=== PATIENT | female | born 1960 | race Caucasian/White ===

== ENCOUNTER → 2016-12-21 | Outpatient (CLI) | payer BC ==
[~2016-12-21] MED LIST: IBUP-1050 PO; OXYC-57 PO; SYMIN/8045 INH
--- NOTE | 2016-12-21 11:46 | DIAGNOSTIC IMAGING REPORT ---
ULTRASOUND ABDOMEN COMPLETE CLINICAL HISTORY: Generalized abdominal pain. COMPARISON STUDY: Abdominal CT dated 05/14/2015. TECHNIQUE: Real-time, grayscale, and color flow sonography of the abdomen was performed. Images are reviewed in the transverse and longitudinal planes. FINDINGS: Liver: The liver is normal in size and echotexture. There is no intrahepatic biliary ductal dilatation. The main portal vein is patent. Gallbladder: The gallbladder is normal in appearance. No gallstones are identified. There is no gallbladder wall thickening or pericholecystic fluid. A sonographic Mehta's sign is reportedly absent. The common bile duct measures up to 0.4 cm in diameter. Pancreas: Visualized portions of the pancreatic head and body are normal in appearance. Spleen: The spleen is normal in size and echotexture, measuring 8.5 cm in length. Small calcified splenic granulomas are noted. Kidneys: The kidneys are normal in size and echotexture. There is no hydronephrosis. The right kidney measures 11.4 cm in length and the left kidney measures 11.6 cm in length. No shadowing calculi are identified. A subcentimeter cyst is noted on the right. Abdominal vasculature: Visualized portions of the abdominal aorta and IVC are normal as visualized. Ascites: None. IMPRESSION: No acute sonographic abnormality is identified. Electronically signed by: Niles Holliday M.D. 12/21/2016 11:45 AM Dictated Date/Time: 12/21/2016 11:43 AM
--- NOTE | 2016-12-21 12:12 | DIAGNOSTIC IMAGING REPORT ---
EXAMINATION: PELVIC ULTRASOUND CLINICAL HISTORY: ABDOMINAL PAIN/ QUESTIONABLE DIVERTICULITIS PAIN. NAUSEA. COMPARISON STUDY: None FINDINGS: The uterus measured 6.9 cm maximum dimension. The endometrial stripe measured 3 mm. The right ovary measured 2.1 cm with normal vascular flow. The left ovary measured 1.8 cm with normal vascular flow. There is no ultrasonographic evidence of ovarian torsion. It should be noted that ovarian torsion can be present with normal Doppler ultrasonographic findings. There was no evidence of pathologic free pelvic fluid. IMPRESSION: Normal study Electronically signed by: Hugh Gleason M.D. 12/21/2016 12:11 PM Dictated Date/Time: 12/21/2016 12:11 PM
== END | disposition home or self-care (01) ==
LOC: C.ULTR 10:13
DX: R10.9 Unspecified abdominal pain (principal)

== ENCOUNTER → 2016-12-29 | Outpatient (CLI) | payer BC ==
[~2016-12-29] MED LIST changes: +OPTIRAY 320 IV PRN
--- NOTE | 2016-12-29 13:40 | DIAGNOSTIC IMAGING REPORT ---
CT SCAN OF THE ABDOMEN AND PELVIS WITH IV CONTRAST CLINICAL HISTORY: Right lower quadrant abdominal pain. COMPARISON STUDY: Abdominal CT dated 05/14/2015. TECHNIQUE: Following the IV administration of 93 cc of Optiray 320, CT scan of the abdomen and pelvis is performed from the lung bases to the proximal femora. Images are reviewed in the axial, sagittal, and coronal planes. IV contrast was administered without complication. Automated dose control exposure was utilized. CT DOSE: 513.93 mGycm FINDINGS: Lung bases: The heart is normal in size and without pericardial effusion. The lung bases are clear noting minimal dependent atelectasis. Liver: The contrast-enhanced liver is normal in size, contour, and attenuation. There is no intrahepatic biliary ductal dilatation. The hepatic veins and portal veins are patent. Gallbladder: Unremarkable. Spleen: Normal in size and attenuation. There are scattered calcified splenic granulomas. Pancreas: Unremarkable. Adrenal glands: Unremarkable. Kidneys: The contrast enhanced kidneys are normal in size. There is mild bilateral hydroureteronephrosis, right slightly greater than left. No calculus or obstructing lesion is clearly identified. The kidneys enhance symmetrically. There are scattered subcentimeter cortical hypodensities. These likely represent cysts but are too small for definitive characterization. Abdominal vasculature: The abdominal aorta is normal in course and caliber noting scattered foci of atherosclerotic calcification. Bowel: The small bowel and colon are normal in course and caliber. Colonic fecal retention is observed. The appendix is well-visualized and normal. Peritoneum: There is no intraperitoneal free air or abdominal ascites. Lymphadenopathy: None. Pelvic viscera: The bladder, uterus, and adnexa are normal as visualized. Small ovarian follicles are incidentally noted. Skeletal structures: No lytic or blastic lesions are seen. IMPRESSION: 1. There is mild bilateral hydronephrosis, right greater than left. No obstructing calculus or lesion is seen and this is of indeterminant significance. This new from 05/14/2015. Consider follow-up with urology. 2. No acute infectious or inflammatory findings are seen in the abdomen or pelvis. 3. Additional changes as above. Electronically signed by: Niles Holliday M.D. 12/29/2016 1:39 PM Dictated Date/Time: 12/29/2016 1:32 PM
== END | disposition home or self-care (01) ==
LOC: C.CTS 12:20
DX: R10.9 Unspecified abdominal pain (principal); K57.90 Diverticulosis of intestine, part unspecified, without perforation or abscess without bleeding

== ENCOUNTER → 2017-06-23 | Outpatient (CLI) | payer BC ==
[~2017-06-23] MED LIST changes: -OPTIRAY 320 IV PRN
[2017-06-23 17:08] LABS: BASO % 0.3 %; BASO ABS # 0.02 K/uL (0-0.2); COMPLETE YES; HEMATOCRIT 40.6 % (37-47); IG% 0.3 %; LYMPH ABS # 2.49 K/uL (1.2-3.4); MEAN CELL VOLUME 89.4 fL (80-100); MEAN CORPUSCULAR HGB CONC 33.5 g/dl (32-36); MEAN PLATELET VOLUME 8.6 fL (7.4-10.4); MONO % 6.6 %; NEUT % 56.8 %; PLATELET COUNT 308 K/uL (130-400); RED BLOOD COUNT 4.54 M/uL (4.2-5.4); WHITE BLOOD COUNT 7.12 K/uL (4.8-10.8)
[2017-06-23 17:40] LABS: BLOOD UREA NITROGEN 20 mg/dl (7-18); BUN/CREATININE RATIO 29.8 (10-20); CALCIUM 9.1 mg/dl (8.5-10.1); CARBON DIOXIDE 30 mmol/L (21-32); CHLORIDE 105 mmol/L (98-107); CREATININE 0.66 mg/dl (0.60-1.20); GLUCOSE 126 mg/dl (70-99); POTASSIUM 4.1 mmol/L (3.5-5.1); SODIUM 140 mmol/L (136-145)
== END | disposition home or self-care (01) ==
LOC: C.CPL 16:11
PROVIDERS: ATTEND Orthopaedic Surgery
DX: M75.02 Adhesive capsulitis of left shoulder (principal)

== ENCOUNTER → 2017-07-08 | Day surgery (SDC) | payer BC ==
[2017-06-28 11:05] VITALS: Ht 170.2 cm; Wt 68.2 kg
[~2017-07-08] VITALS: Ht 170.2 cm; Wt 68.2 kg
[~2017-07-08] MED LIST changes: +ATROPINE SULFATE 0.1 MG/ML 5ML SYR IV PRN; +BUPIVACAINE/EPINEPHRINE 0.25% 1:200,000 30 ML VIAL ONE; +CEFAZOLIN 2000 MG/60 ML D5W IV SCH; +DEXAMETHASONE SOD INJ 4 MG/ML VIAL ONE; +EpHEDrine SULFATE INJ 50 MG/ML AMP IV PRN; +EpINEphrine INJ 1MG/ML AMP 1 MG/ML AMP ONE; +FENTANYL CITRATE INJ 50 MCG/1 ML 2 ML VIAL IV PRN; +FENTANYL CITRATE INJ 50 MCG/1 ML 2 ML VIAL ONE; +HYDROmorphone INJ 1 MG/ML SYR IV PRN; +LACTATED RINGER'S 1000ML 1,000 ML IV SCH; +LIDOCAINE HCL 1% MPF 2 ML VIAL ONE; +LIDOCAINE HCL 2% 2 ML VIAL (20MG/ML) ONE; +METHYLPREDNISOLONE ACETATE 80 MG/ML VIAL ONE; +MIDAZOLAM HCL 1 MG/ML 2ML VIAL ONE; +ONDANSETRON INJ 2 MG/ML 2 ML VIAL IV PRN; +ONDANSETRON INJ 2 MG/ML 2 ML VIAL ONE; +OXYCODONE/ACETAMINOPHEN 5-325 TAB PO PRN; +PROMETHAZINE HCL INJ 12.5 MG in SODIUM CHLORIDE 0.9% 50ML 50 ML IV PRN; +PROPOFOL IV EMULSION 10 MG/ML 20 ML VIAL IV ONE; +ROPIVACAINE 0.5% 5 MG/ML 30 ML VIAL ONE; +SODIUM CHLORIDE 0.9% 1000ML 1,000 ML IV SCH
--- NOTE | 2017-07-08 08:15 | History & Physical Bridge - SC ---
H&P Re-Evaluation Bridge Note: I have examined the patient, reviewed the History & Physical and in the interval since the performance of the History & Physical I have noted the following changes of clinical significance: No changes noted
--- NOTE | 2017-07-08 11:01 | Discharge Instructions-SurgCtr ---
Discharge Instructions Date of Service Jul 08, 2017. Visit Reason for Visit: Left Shoulder Adhesive Capsulitis Discharge Discharge Diagnosis / Problem: SAME ABOVE Discharge Goals Goal(s): Decrease discomfort, Improve function Medications Stopped Medications Name(s): Advil last taken over a week ago Restart Stopped Medication(s): SAME ABOVE Activity Recommendations Activity Limitations: as noted below Lifting Limitations: gradually increase as tolerated Exercise/Sports Limitations: gradually increase as tolerated Shower/Bathe: tomorrow Anesthesia . Post Anesthesia Instructions: If you have had General Anesthesia or IV Sedation: * Do not drive today. * Resume driving when surgeon permits. * Do not make important decisions or sign legal documents today. * Call surgeon for: 1. Temperature elevations greater than 101 degrees F. 2. Uncontrollable pain. 3. Excessive bleeding. 4. Persistent nausea and vomiting. 5. Medication intolerance (nausea, vomiting or rash). * For nausea and vomiting use only clear liquids such as: tea, soda, bouillon until nausea subsides, then gradually increase diet as tolerated. * If you have any concerns or questions, call your surgeon's office. If physician is unavailable and it is an emergency, call 911 or go to the nearest emergency room. . Instructions / Follow-Up Instructions / Follow-Up MEDICATIONS: * Resume previous medications unless instructed otherwise by your surgeon. * Always take pain medication on a full stomach or with food to avoid upset stomach. * Do not drink alcohol or drive while taking narcotics. * Ibuprofen or Tylenol may be taken if narcotic not needed. SPECIAL CARE INSTRUCTIONS: __ None _X_ Keep extremity elevated and iced x 48 hours; apply ice 20-30 minutes 8-10 times/day. May remove at night. _X_ Sling (REMOVE AFTER 24 HOURS) _X_24 hrs/day __ Remove at night __ Shoulder Immobilizer __ 24 hrs/day __ Remove at night _X_ Dressing __ Maintain until seen in office, may shower with plastic over site _X_ Remove dressings in 24-48 hours and then may shower _X_ Cover incisions with band-aids after showering __ Do not remove steri-strips Call physician if chills or temperature rises above 102 degrees or pain unrelieved by prescribed pain medications at . . Diet Recommendations Home Diet: no limitations Fluid Restriction: None Procedures Procedures Performed: Left Shoulder Arthroscopic Capsular Release Pending Studies Studies pending at discharge: no Work Instructions Return To Work: 3 days (WHEN PAIN IS CONTROLLED ) Medical Emergencies . Who to Call and When: Medical Emergencies: If at any time you feel your situation is an emergency, please call 911 immediately. . Non-Emergent Contact Non-Emergency issues call your: Primary Care Provider Call Non-Emergent contact if: you have a fever, temperature is above 101.5 . . "Provider Documentation" section prepared by Winston Vasquez. .
--- NOTE | 2017-07-08 11:05 | [facility] Post Operative Brief Note ---
Immediate Operative Summary Operative Date Jul 08, 2017. Pre-Operative Diagnosis Left Shoulder Adhesive Capsulitis Post-Operative Diagnosis Same Procedure(s) Performed Left Shoulder Arthroscopic Capsular Release Surgeon Dr Almeida Fur Polisher Surgeon(s) Arian Vasquez PA-C Estimated Blood Loss 0ml Findings as above Specimens None Complication(s) None Disposition Recovery Room / PACU
--- NOTE | 2017-07-08 11:26 | OPERATIVE REPORT ---
DATE OF OPERATION: 07/08/2017 PREOPERATIVE DIAGNOSIS: Adhesive capsulitis of the left shoulder. POSTOPERATIVE DIAGNOSIS: Same. PROCEDURES: Left shoulder diagnostic arthroscopy with extensive debridement, lysis of adhesions and manipulation under anesthesia. SURGEON: Dr. Alejandro Almeida. ELECTRICAL AND INSTRUMENT TECHNICIAN: Arian Vasuqez PA-C, whose assistance was necessary for positioning the arm and helping with instrumentation. ANESTHESIA: General with a left interscalene nerve block. COMPLICATIONS: None. CONDITION: Stable to PACU. INDICATIONS: Suzy is a pleasant 56-year-old female who presented to my office with increasing pain and tightness of her left shoulder. Clinical examination was diagnostic for adhesive capsulitis of the left shoulder. After failing conservative treatment, she elected to undergo a capsular release. DESCRIPTION OF PROCEDURE: On 07/08/2017, she arrived at [facility] for the above procedure. She was seen in the preoperative holding area and the operative extremity was identified and signed. She was given a preoperative antibiotic and a left interscalene nerve block. She was taken back to the operating room, laid on the table in supine position and put under general anesthesia. She was put into the beachchair position. The left shoulder was prepped and draped in sterile fashion. Time-out was done and the patient and operative extremity was properly identified. On preoperative physical examination, she had about 45 degrees of abduction and 20 degrees of external rotation. A gentle manipulation was done into her anesthesia to help facilitate insertion of the arthroscope. The scope was then placed in the posterior portal. Diagnostic arthroscopy showed no cartilage damage to the humeral head or the glenoid. There was a little fraying of the anterior labrum. The biceps tendon was intact. The supraspinatus, infraspinatus and teres minor were all checked and intact. There was a lot of redness and inflammation of the rotator interval, the middle and inferior glenohumeral ligaments. An anterior portal was made. A shaver was used to start an extensive debridement of the intraarticular capsule. Time was spent cleaning up any frayed tissue from the earlier manipulation. An ablator was then used to do a lysis of adhesions and completely open up the rotator interval from underneath the coracoid to the biceps manish mechanism. Time was also spent releasing the middle and inferior glenohumeral ligaments. I was able to release all the way down to the 6 o'clock position. Care was taken not to disrupt the subscapularis or the axillary nerve. A shaver was then used to continue debridement and remove any soft tissue remnants. An ablator was once again used to control hemostasis. Once I was happy with the overall release, arthroscopic instruments were removed. An additional manipulation under anesthesia was done. I was able to get full range of motion of the shoulder. The scope was placed back into the glenohumeral joint. Hemostasis was controlled and a spinal needle was placed. The shoulder was then injected with 80 mg of Depo-Medrol and 5 mL of Marcaine. Arthroscopic instruments were removed. Portal sites were closed with 3-0 nylon. She was then placed in a soft dressing and a regular arm sling. She was then extubated, transferred to a [facility] and taken to the postanesthesia care unit in stable condition. She tolerated the procedure well. I attest to the content of the Intraoperative Record and any orders documented therein. Any exception s are noted below.
[2017-07-08 12:07] VITALS: BP 116/74; PULSE 80; O2SAT 94
--- NOTE | 2017-07-08 12:25 | Anesthesiology Progress Note ---
Anesthesia Post Op Note Date & Time Jul 08, 2017 at 12:25 Vital Signs Pain Intensity: 0 Vital Signs Past 12 Hours Date Time Temp Pulse Resp B/P (MAP) Pulse Ox O2 Delivery O2 Flow Rate FiO2 07/08/17 12:07 80 16 116/74 (88) 94 Room Air 07/08/17 11:46 36.6 63 16 118/74 (89) 99 Room Air 07/08/17 11:29 80 20 07/08/17 11:29 83 20 93 07/08/17 11:26 124/71 07/08/17 11:24 70 14 93 07/08/17 11:24 73 14 07/08/17 11:23 80 19 07/08/17 11:23 77 19 97 07/08/17 11:21 117/71 07/08/17 11:19 88 16 117/71 96 Room Air 07/08/17 11:18 80 17 100 07/08/17 11:18 81 17 07/08/17 11:17 69 12 07/08/17 11:17 69 12 100 07/08/17 11:16 120/68 07/08/17 11:12 70 14 07/08/17 11:12 69 14 100 07/08/17 11:11 112/75 07/08/17 11:07 77 18 99 07/08/17 11:07 75 18 07/08/17 11:06 109/71 07/08/17 11:02 74 16 99 07/08/17 11:02 74 16 07/08/17 11:01 112/61 07/08/17 10:57 79 12 07/08/17 10:57 78 12 99 07/08/17 10:56 119/66 07/08/17 10:54 118/66 07/08/17 10:53 36.1 86 16 118/61 98 Mask 10 07/08/17 10:07 79 19 07/08/17 10:06 112/77 07/08/17 10:03 75 26 100 07/08/17 10:03 75 07/08/17 10:02 83 14 100 07/08/17 10:02 81 07/08/17 10:01 112/67 07/08/17 09:57 69 11 100 07/08/17 09:57 70 07/08/17 09:56 72 07/08/17 09:56 72 20 117/73 100 07/08/17 09:51 71 3 113/76 100 07/08/17 09:51 72 07/08/17 09:50 68 5 100 07/08/17 09:50 68 07/08/17 09:46 123/73 07/08/17 09:45 75 0 99 07/08/17 09:45 76 07/08/17 09:40 72 07/08/17 09:40 73 0 98 07/08/17 09:35 74 0 99 07/08/17 09:35 73 07/08/17 09:30 74 0 99 07/08/17 09:30 78 07/08/17 09:25 72 0 99 07/08/17 09:25 71 07/08/17 09:20 74 0 98 07/08/17 09:20 72 07/08/17 09:15 73 0 99 07/08/17 09:15 74 07/08/17 09:10 78 07/08/17 09:10 83 0 98 07/08/17 09:05 76 0 99 07/08/17 09:05 76 07/08/17 09:00 68 0 99 07/08/17 09:00 68 07/08/17 08:55 17 07/08/17 08:55 17 07/08/17 08:05 36.6 82 16 114/69 (84) 96 Room Air Notes Mental Status: alert / awake / arousable, participated in evaluation Pt Amnestic to Procedure: Yes Nausea / Vomiting: adequately controlled Pain: adequately controlled Airway Patency, RR, SpO2: stable & adequate BP & HR: stable & adequate Hydration State: stable & adequate Anesthetic Complications: no major complications apparent
== END | disposition home or self-care (01) ==
LOC: X.SURG 07:48
PROVIDERS: ATTEND Orthopaedic Surgery
DX: M75.02 Adhesive capsulitis of left shoulder (principal); J45.909 Unspecified asthma, uncomplicated; Z79.899 Other long term (current) drug therapy